=== PATIENT | female | born 1945 | race African-American/Black ===

== ENCOUNTER 2017-06-24 10:15 | Emergency (ER) | payer OTHER ==
[~2017-06-24] VITALS: Ht 162.6 cm; Wt 93.5 kg
[~2017-06-24 10:15] MED LIST: PROTONIX40 MG PO
[2017-06-24 11:54] LABS: HEMATOCRIT 36.5 % (36.0-46.0); HEMOGLOBIN 12.3 G/DL (11.9-15.5); MCH 27.8 PG (29.0-34.0); MCHC 33.7 G/DL (30.0-36.0); MCV 82.6 FL (83-99); PLATELET COUNT 194 K/uL (156-360); RBC DIS.WIDTH-CV 13.6 % (11.8-14.6); RED BLOOD COUNT 4.42 M/uL (3.80-5.20); WHITE BLOOD COUNT 6.7 K/uL (4.1-10.2)
[2017-06-24 12:04] LABS: CHLORIDE 105 mEq/L (99-109); POTASSIUM 3.9 mEq/L (3.7-5.4); SODIUM 141 mEq/L (136-147)
[2017-06-24 12:06] LABS: GLUCOSE 95 mg/dL (70-99)
[2017-06-24 12:10] LABS: CREATININE 0.8 mg/dL (0.6-1.3); GFR ESTIMATE (CALCULATED) > 59 mL/min/
[2017-06-24 12:11] LABS: UREA NITROGEN (BUN) 15 mg/dL (9-23)
[2017-06-24 12:42] LABS: APPEARANCE CLEAR ((CLEAR)); BILIRUBIN NEGATIVE; BLOOD NEGATIVE; COLOR STRAW ((YELLOW)); GLUCOSE (STRIP) NEGATIVE; KETONES NEGATIVE; LEUKOCYTES TRACE; NITRITE NEGATIVE; PROTEIN (STRIP) NEGATIVE; SPECIFIC GRAVITY 1.015 (1.000-1.030); UROBILINOGEN 0.2 MG/DL (0.2-1.0)
[2017-06-24 12:48] LABS: BACTERIA RARE /HPF; EPITHELIAL CELLS 1+ /HPF; MUCUS NONE SEEN /LPF; RED BLOOD CELLS 0-5 /HPF (0-5); WHITE BLOOD CELLS 0-5 /HPF (0-5)
[2017-06-24] MEDS ORDERED: NORCO 5/3251 TABLET PO (13:32)
[2017-06-24 14:04] VITALS: BP 148/87
== END 2017-06-24 14:06 | disposition home or self-care (01) ==
LOC: EME 10:15
PROVIDERS: Physician Assistant
DX: M54.5 Low back pain (principal); R07.89 Other chest pain; M79.604 Pain in right leg; R05 Cough; R20.2 Paresthesia of skin
CPT/HCPCS: 71046; 72100; 80048; 81003; 85027; 99281; 99283